=== PATIENT | female | born 1990 | race Two or more races ===

== ENCOUNTER 2023-05-08 19:59 | Emergency (ER) | payer MEDICAID, OTHER ==
[~2023-05-08] VITALS: Ht 157.5 cm; Wt 109.0 kg
[2023-05-08] MEDS ORDERED: IBUP1TAB5 PO (22:37)
[2023-05-08] MEDS ORDERED: MUPI2OIN2 EX (22:37)
[2023-05-08] MEDS ORDERED: AUG875T PO (22:37)
[2023-05-08] MEDS ORDERED: TETANUS-DIPTH-ACEL PERTUSSIS 0.5ML SYR Tdap IM ONE (22:45)
[2023-05-08] MEDS ORDERED: IBUPROFEN 600 MG TAB PO ONE (22:45)
[2023-05-08] MEDS ORDERED: NEOMYCIN-BACITRACIN-POLYM UNITDOSE PKG TOP OINT TOP ONE (22:45)
[2023-05-08] MEDS ORDERED: AMOXICILLIN/CLAVUL 875 MG TAB PO ONE (22:45)
[2023-05-08 23:34] VITALS: BP 120/86; PULSE 74; RESP 18; O2SAT 99
[2023-05-09 00:18] VITALS: TEMP 98.6
[2023-05-09] MEDS ORDERED: FLUC200T50 PO (00:54)
== END 2023-05-09 00:51 | disposition home or self-care (01) ==
LOC: ER 19:59
DX: S60.311A Abrasion of right thumb, initial encounter (principal); S61.031A Puncture wound without foreign body of right thumb without damage to nail, initial encounter; W55.03XA Scratched by cat, initial encounter; Y93.89 Activity, other specified; Y92.89 Other specified places as the place of occurrence of the external cause; Y99.8 Other external cause status
CPT/HCPCS: 73130; 90471; 90715